=== PATIENT | female | born 1950 | race African-American/Black ===

== ENCOUNTER 2018-04-29 06:15 | Inpatient (IN) | END 2018-05-10 19:35 | DRG 871 ==

== ENCOUNTER 2018-10-06 08:43 | Inpatient (IN) | payer OTHER ==
[~2018-10-06] VITALS: Ht 152.4 cm; Wt 50.0 kg
[~2018-10-06 08:43] MED LIST: ACET-141 PO; ASCO500C7 PO; DOCU100T PO; DONE5TAB7 PO; METO-448 PO; MULTI PO; NOVO3I SC; ONDA4TAB13 PO; PANT40TA3 PO; PROT946L PO; [UNRECOGNIZED DRUG - CODE] PR
[2018-10-06] MEDS ORDERED: SOD CHLORIDE 0.9% 1,000 ML IV STA ×2 (08:55→12:09)
[2018-10-06] MEDS ORDERED: ACET-141 GTB (11:57)
[2018-10-06] MEDS ORDERED: ASC500 GTB (12:02)
[2018-10-06] MEDS ORDERED: INSU100I12 SQ (12:02)
[2018-10-06] MEDS ORDERED: ASPI-903 GTB (12:03)
[2018-10-06] MEDS ORDERED: DOCU-144 GTB (12:03)
[2018-10-06] MEDS ORDERED: DONE5TAB7 GTB (12:04)
[2018-10-06] MEDS ORDERED: LANS30CA GTB (12:05)
[2018-10-06] MEDS ORDERED: LANT3I SC (12:05)
[2018-10-06] MEDS ORDERED: METO-448 GTB (12:08)
[2018-10-06] MEDS ORDERED: INSULIN LISPRO 100 UNIT/ML VIAL SC STA (12:09)
--- NOTE | 2018-10-06 12:09 | ERD ---
ER Documentation Chief Complaint Chief Complaint ALOC AND HYPERGLYCEMIC WITH BG IN THE 300'S HPI This is a 5-year-old female that presents to the emergency department from [facility] brought in by EMS. The patient presented to the emergency department for changes in her mental status. The patient is normally verbal. However this morning roughly an hour prior to arrival nursing staff indicated that the patient appeared more confused. She was nonverbal. EMS arrived and indicated that the patient's blood sugar was 357. Nursing staff indicated that yesterday the patient had ancillary laboratory work taken at 5 PM and her serum sodium was significantly elevated at 155. The patient had no signs of hemoptysis hematemesis or melanotic stools. The patient has underlying history of acute kidney injury due to tubular necrosis. She had multiple previous urinary tract infections. The patient also has a sacral ulcer stage II. The patient was recently discharged from [facility] on 10/23/2018. The patient has a history of type 2 diabetes mellitus. She also has underlying bipolar disease and is poor historian. ROS All systems reviewed and are negative except as per history of present illness. Medications Home Meds Reported Medications Protein Supplement (Promod) 946 Ml Liquid, 30 ML GTB BID 10/06/18 Ondansetron Hcl* (Zofran*) 4 Mg Tab, 4 MG GTB Q4H PRN for NAUSEA AND OR VOMITING, TAB 10/06/18 Multivitamin (Chewable-Franky) 1 Each Tab.chew, 1 EACH GTB DAILY, TAB.CHEW 10/06/18 Metoprolol Tartrate* (Lopressor*) 25 Mg Tab, 25 MG GTB BID, #60 TAB HOLD IF SBP<100 OR HR<70 10/06/18 Lansoprazole* (Lansoprazole*) 30 Mg Capsule.dr, 30 MG GTB DAILY, CAP 10/06/18 Insulin Glargine* (Lantus*) 100 Unit/Ml Soln, 10 UNIT SC QHS, #1 VIAL 10/06/18 Donepezil* (Donepezil*) 5 Mg Tablet, 5 MG GTB DAILY, #30 TAB 10/06/18 Docusate Sodium* (Colace*) 100 Mg Capsule, 100 MG GTB DAILY, #30 CAP 10/06/18 Aspirin* (Aspirin* Chew) 81 Mg Tab.chew, 81 MG GTB DAILY, TAB.CHEW 10/06/18 Ascorbic Acid (Vitamin C) 500 Mg Tab, 500 MG GTB DAILY, TAB 10/06/18 Insulin Lispro (Humalog Kwikpen U-100) 100 Unit/1 Ml Insuln.pen, 0 SQ SLIDING SCALE, EA IF 150-199=2 UNITS,200-249=3 UNITS,250-299=5 UNITS, 300-349=7 UNITS,350-400=10 UNITS, >400=12 UNITS AND CALL <70 GIVE GLUCAGON 1MG AND CALL 10/06/18 Acetaminophen* (Acetaminophen*) 500 MG Extra Strength Tablet, 1000 MG GTB Q4H PRN for PAIN -05/08, TAB 10/06/18 Discontinued Reported Medications Insulin Aspart* (Novolog Insulin Pen*) 100 Unit/Ml Soln, 0 SC AC MEALS AND BEDTIME, EA 70-149 = 0 UNITS 150-199 = 2 UNITS 200-249 = 3 UNITS 250-299 = 5 UNITS 300-349 = 7 UNITS 350-400 =10 UNITS > 400 = 12 UNITS CALL 04/29/18 Protein Supplement (Promod) 946 Ml Liquid, 30 ML PO BID 04/29/18 Ascorbic Acid* (Vitamin C*) 500 Mg Capsule.sa, 500 MG PO DAILY, CAP 04/29/18 Pantoprazole* (Protonix*) 40 Mg Tablet.dr, 40 MG PO DAILY, TAB 04/29/18 Ondansetron Hcl* (Zofran*) 4 Mg Tab, 4 MG PO Q4H PRN for NAUSEA AND OR VOMITING, TAB 04/29/18 Multivitamins* (Theragran*) 1 Tab Tab, 1 TAB PO DAILY, TAB 04/29/18 Donepezil* (Donepezil*) 5 Mg Tablet, 5 MG PO DAILY, #30 TAB 04/29/18 Docusate Sodium* (Dok*) 100 Mg Tablet, 100 MG PO DAILY PRN for CONSTIPATION, #30 CAP 04/29/18 Acetaminophen* (Acetaminophen*) 500 MG Extra Strength Tablet, 500 MG PO Q4H PRN for MILD PAIN LEVEL 1-3, TAB 04/29/18 Discontinued Scripts Aspirin (Aspirin) 300 Mg Supp.rect, 81 MG TX DAILY for 30 Days, SUPP.RECT Prov:CONSUELO RUBY 05/09/18 Metoprolol Tartrate* (Lopressor*) 25 Mg Tab, 25 MG PO BID for 30 Days, TAB Prov:CONSUELO RUBY 05/09/18 Allergies Allergies: Coded Allergies: No Known Allergy (Unverified , 10/06/18) PMhx/Soc Hx Neurological Disorder: Yes (CVA) Hx Respiratory Disorders: Yes Hx Cardiac Disorders: Yes Hx Psychiatric Problems: Yes Hx Miscellaneous Medical Probl: Yes (CHRONIC DYSPHAGIA, CHRONIC CACHEXIA , ENCEPPALOPATHY) Smoking Status: Never smoker Physical Exam Vitals Vital Signs Date Temp Pulse Resp B/P (MAP) Pulse Ox O2 O2 Flow FiO2 Time Delivery Rate 10/06/18 99 18 120/89 99 Room Air 13:20 (99) 10/06/18 112 21 136/96 96 Room Air 11:17 (109) 10/06/18 118 14 123/93 97 Room Air 09:15 (103) 10/06/18 98.2 120 18 138/84 96 08:45 (102) Physical Exam Constitutional:Well-developed. Well-nourished. Cachectic. HEENT:Normocephalic. Atraumatic.Pupils were equal round reactive to light. Very dry mucous membranes.No tonsillar exudates. Very poor oral dentition Neck: No nuchal rigidity. No lymphadenopathy. No posterior cervical spine tenderness or step-offs. Respiratory: Not using accessory muscles of respiration.Lungs were clear to auscultation bilaterally. No rhonchi. No rales. No wheezing. Cardiovascular: Regular rate regular rhythm.No murmurs. No rubs were appreciated.S1, S2 normal. Distal pulses are palpable 2+ bilaterally. GI: Abdomen was soft. Nontender. Non Distended. No pulsatile abdominal masses or bruits. No rebound. No guarding. Bowel sounds were present and normal. PEG tube in place and surrounding skin is clean dry and intact Muscle skeletal: Patient is full range of motion of the upper extremity bilaterally. Muscle atrophy of the bilateral lower extremities. Patient does not follow verbal commands so muscular testing was unable to be obtained however the patient passively had full range of motion of the lower extremities Skin: No petechia, no purpura. No lesions on the palms or the soles of the feet. No maculopapular rash. NEURO: Gait not observed. Patient was mumbling incompressible sounds. Gait not observed Result Diagram: 10/06/18 1220 10/06/18 1222 Results 24 hrs Laboratory Tests Test 10/06/18 10:07 10/06/18 10:10 10/06/18 10:37 10/06/18 12:20 White Blood 4.1 10^3/ul 13.4 10^3/ul Count Red Blood Count 1.70 10^6/ul 5.79 10^6/ul Hemoglobin 5.3 g/dl 17.5 g/dl Hematocrit 18.4 % 55.9 % Mean Corpuscular 108.2 fl 96.5 fl Volume Mean Corpuscular 30.6 pg 30.2 pg Hemoglobin Mean Corpuscular 28.3 g/dl 31.3 g/dl Hemoglobin Shawna nt Red Cell 14.6 % 14.3 % Distribution Width Platelet Count 95 10^3/UL 359 10^3/UL Mean Platelet 12.0 fl 12.4 fl Volume Immature 0.700 % 0.500 % Granulocytes % Neutrophils % % 79.9 % Segmented 90 % Neutrophils % (Manual) Band Neutrophils 1 % % (Manual) Lymphocytes % % 12.5 % Lymphocytes % 4 % (Manual) Monocytes % % 6.6 % Monocytes % 3 % (Manual) Eosinophils % % 0.1 % Basophils % % 0.4 % Basophils % 2 % (Manual) Nucleated Red 0.0 /100WBC 0.0 /100WBC Blood Cells % Immature 0.030 10^3/ul 0.070 10^3/ul Granulocytes # Neutrophils # 10^3/ul 10.7 10^3/ul Neutrophils # 3.7 10^3/ul (Manual) Band Neutrophils 0.0 10^3/ul # Lymphocytes 0.1 10^3/ul (Manual) Lymphocytes # 10^3/ul 1.7 10^3/ul Monocytes # 10^3/ul 0.9 10^3/ul Monocytes # 0.1 10^3/ul (Manual) Eosinophils # 10^3/ul 0.0 10^3/ul Basophils # 10^3/ul 0.1 10^3/ul Basophils # 0.0 10^3/ul (Manual) Nucleated Red 10^3/ul 0.0 10^3/ul Blood Cells # Platelet DECREASED Estimate Giant Platelets 3 % Poikilocytosis 3+ Anisocytosis 1+ Macrocytosis 2+ Prothrombin Time 13.3 Sec Prothrombin Time 1.0 Ratio INR 1.00 International Normalized Ratio Activated 27.5 Sec Partial Thrombop last Time Sodium Level 161 mmol/L Potassium Level 4.6 mmol/L Chloride Level 123 mmol/L Carbon Dioxide 31 mmol/L Level Anion Gap 7 Blood Urea 98 mg/dl Nitrogen Creatinine 1.50 mg/dl Est Glomerular 42 mL/min Filtrat Rate mL/min Glucose Level 418 mg/dl Calcium Level 10.2 mg/dl Total Bilirubin 0.5 mg/dl Direct Bilirubin 0.00 mg/dl Indirect 0.5 mg/dl Bilirubin Aspartate Amino 42 IU/L Transf (AST/SGOT ) Alanine 34 IU/L Aminotransferase (ALT/SGPT) Alkaline 113 IU/L Phosphatase Ammonia < 9 umol/l Creatine Kinase 85 IU/L Creatine Kinase 1.0 Index Creatinine 0.89 ng/ml Kinase MB (Mass) Troponin I 0.044 ng/ml Total Protein 8.2 g/dl Albumin 3.9 g/dl Globulin 4.30 g/dl Albumin/Globulin 0.90 Ratio Salicylates < 1.0 mg/dl Level Acetaminophen < 10.0 ug/ml Level Ethyl Alcohol < 10.0 mg/dl Level POC Venous 1.7 mmol/L Lactate Urine Color YELLOW Urine Clarity CLOUDY Urine pH 5.0 Urine Specific 1.020 [place] Urine Ketones NEGATIVE mg/dL Urine Nitrite NEGATIVE mg/dL Urine Bilirubin NEGATIVE mg/dL Urine NEGATIVE mg/dL Urobilinogen Urine Leukocyte 3+ Nadege/ul Esterase Urine 4 /HPF Microscopic RBC Urine > 182 /HPF Microscopic WBC Urine Bacteria FEW /HPF Urine Mucus FEW /HPF Urine Yeast FEW /HPF (Budding) Urine Hemoglobin NEGATIVE mg/dL Urine Glucose 3+ mg/dL Urine Total 1+ mg/dl Protein Urine Opiates Negative Screen Urine Negative Barbiturates Urine Negative Amphetamines Screen Urine Negative Benzodiazepines Screen Urine Cocaine Negative Screen Urine Negative Cannabinoids Test 10/06/18 12:22 10/06/18 12:56 Sodium Level 162 mmol/L Potassium Level 4.4 mmol/L Chloride Level 120 mmol/L Carbon Dioxide 36 mmol/L Level Anion Gap 6 Blood Urea 100 mg/dl Nitrogen Creatinine 1.53 mg/dl Est Glomerular 41 mL/min Filtrat Rate mL/min Glucose Level 409 mg/dl Lactic Acid 3.1 mmol/L Level Calcium Level 10.3 mg/dl Total Bilirubin 0.6 mg/dl Direct Bilirubin 0.00 mg/dl Indirect 0.6 mg/dl Bilirubin Aspartate Amino 46 IU/L Transf (AST/SGOT ) Alanine 42 IU/L Aminotransferase (ALT/SGPT) Alkaline 110 IU/L Phosphatase Total Protein 8.3 g/dl Albumin 4.1 g/dl Globulin 4.20 g/dl Albumin/Globulin 0.97 Ratio Bedside Glucose 450 mg/dL Current Medications Medications Dose Sig/Louie Start Time Status Last (Trade) Ordered Route PRN Stop Time Admin Dose Reason Admin Sodium 1,000 ml @ Q1H STAT 10/06/18 DC 10/06/18 Chloride 1,000 mls/hr IV 08:55 09:36 10/06/18 09:54 Sodium 1,000 ml @ Q1H STAT 10/06/18 DC 10/06/18 Chloride 1,000 mls/hr IV 12:09 12:47 10/06/18 13:08 Insulin 10 unit ONCE STAT 10/06/18 DC 10/06/18 Human SC 12:09 12:58 Lispro 10/06/18 12:13 (Humalog) Ceftriaxone 50 ml @ ONCE ONCE 10/06/18 DC 10/06/18 Sodium 100 mls/hr IVPB 12:30 12:47 10/06/18 12:59 Ondansetron 4 mg ER BRIDGE 10/06/18 HCl (Zofran PRN IV 12:30 Inj) NAUSEA/VOMITI 10/07/18 12:29 NG 650 mg ER BRIDGE 10/06/18 Acetaminophen PRN PO 12:30 (Tylenol .MILD PAIN 10/07/18 12:29 Tab) 1-3 OR TEMP Procedures/MDM The patient presented to the emergency department with an acute and persistent change in their mental status. The differential diagnosis is diverse however reversible causes such as hypoglycemia, opiate overdose, thiamine deficiency were immediately considered. The patient was placed on a alarm security or surveillance monitor, continuous pulse oximetry and IV access was established. The patients airway was secure however hypoxic events such as anemia, shock, or severe pulmonary disease were all considered as etiologies in this patients presentation. Circulation assessed with good cap refill and did [not] require fluids or pressure support. Finger stick for rapid glucose determined to be normal. 12 Lead EKG tracing ordered and reviewed by myself showed: Sinus tachycardia 116 bpm and no arrhythmia. TX interval normal. QRS duration normal. No ST segment elevation No ST segment depression. No changes consistent with acute ischemia. The patient had severe hypernatremia. She was given a liter bolus of normal saline. The patient was also hyperglycemic but there is no evidence of ketosis. She was given subcutaneous insulin to treat her hyperglycemia. The patient was severely anemic. There is no signs of an upper or lower gastrointestinal bleed is fecal occult blood test was negative. Therefore repeat blood work was obtained and the patient was not anemic. Hemoglobin was 17.5. Therefore a blood transfusion was not performed I did obtain a CT scan the patient had given that she had changes in her mental status. This was reviewed by the radiologist indicate the following: Chronic encephalomalacia left temporal lobe unchanged. Encephalomalacia inferior left frontal lobe likely related to chronic trauma. Old left basal ganglia and subependymal parietal white matter infarct unchanged. Chronic infarct burgos and subcortical white matter right parietal lobe. I obtained a 1 view chest radiograph there is no signs of infiltrates or pneumothorax. The patient had a urinary tract infection was given IV ceftriaxone. The patient had acute on chronic renal failure. This could be exacerbated by the patient's severe dehydration and prerenal and therefore will continue to receive IV fluid resuscitation. She will be admitted to her primary care physician Dr. Godoy. She will go to the telemetry service in serious condition. Critical Care: Time: 65 minutes Treatments/Evaluations: Close monitoring and treatment of unstable vital signs, cardiorespiratory, and neurologic status, while maintaining tight balance of fluid, respiratory, and cardiac interventions. Time does not include performing any of the above billable procedures. Departure Diagnosis: Primary Impression: Encephalopathy Additional Impressions: Renal failure (ARF), acute on chronic Acute renal failure type: unspecified Chronic kidney disease stage: unspecified stage Qualified Codes: N17.9 - Acute kidney failure, unspecified; N18.9 - Chronic kidney disease, unspecified Hyperglycemia without ketosis Urinary tract infection Urinary tract infection type: acute cystitis Hematuria presence: without hematuria Qualified Codes: N30.00 - Acute cystitis without hematuria Acute hypernatremia Condition: Serious HUONG DANG MD Oct 06, 2018 12:09
[2018-10-06] MEDS ORDERED: ONDA4TAB13 GTB (12:12)
[2018-10-06] MEDS ORDERED: MULT1TAB52 GTB (12:12)
[2018-10-06] MEDS ORDERED: PROT946L GTB (12:13)
[2018-10-06] MEDS ORDERED: CEFTRIAXONE 1 GM/50 ML (PMX) 50 ML IVPB ONE (12:30)
[2018-10-06] MEDS ORDERED: ONDANSETRON 4 MG INJ IV PRN ×2 (12:30→17:00)
[2018-10-06] MEDS ORDERED: ACETAMINOPHEN 325 MG TAB PO PRN ×2 (12:30→17:00)
[2018-10-06 16:33] VITALS: PULSE 103
--- NOTE | 2018-10-06 16:55 | QN ---
Documentation Comment [id number] EFE SALCIDO MD Oct 06, 2018 16:55
[2018-10-06] MEDS ORDERED: ACETAMINOPHEN 500 MG TAB PO PRN (17:00)
[2018-10-06] MEDS ORDERED: MAGNESIUM HYDROXIDE 30ML CUP PO PRN (17:00)
[2018-10-06] MEDS ORDERED: NA PHOSPHATE/BIPHOS 133 ML ENEMA PR PRN (17:00)
[2018-10-06] MEDS ORDERED: BISACODYL (EC) 5 MG TAB PO PRN (17:00)
[2018-10-06] MEDS ORDERED: ACETAMINOPHEN 650 MG SUPP PR PRN (17:00)
[2018-10-06] MEDS ORDERED: ONDANSETRON 4 MG TAB GTB PRN (17:00)
[2018-10-06] MEDS ORDERED: NACL 0.9% 3 ML SYG IV SCH (17:00)
[2018-10-06] MEDS ORDERED: DOCUSATE SODIUM 100 MG CAP PO PRN (17:00)
[2018-10-06 17:31] VITALS: BP 129/93; PULSE 104; RESP 18
[2018-10-06 17:40] VITALS: Ht 152.4 cm; Wt 50.0 kg
[2018-10-06] MEDS ORDERED: INSULIN ASPART [NOVOLOG] 3 ML PEN SC SCH (17:55)
--- NOTE | 2018-10-06 17:59 | HP ---
DATE OF ADMISSION: 10/06/2018 HISTORY OF PRESENT ILLNESS: The patient is a 68-year-old female with history of diabetes mellitus, G -tube placement, hypertension, CKD, previously was discharged from this hospital with a diagnosis of UTI, dementia, failure to thrive, history of CVA, MRSA. The patient now presents from [facility] w ith dehydration. The patient also has history of severe sepsis, ESBL UTI, chronic encephalopathy. T he patient has dysphagia, history of CVA, diabetes mellitus, anemia. The patient herself is unable t o give any detailed history. PAST MEDICAL HISTORY: As mentioned above. ALLERGY HISTORY: NEGATIVE. FAMILY HISTORY: Cannot be obtained. SOCIAL HISTORY: Cannot be obtained. MEDICATION HISTORY: Listed as: 1. Tylenol. 2. Ascorbic acid. 3. Aspirin. 4. Docusate sodium. 5. Aricept. 6. Insulin glargine 10 units. 7. Prevacid. 8. Metoprolol. 9. Multiple vitamins. 10. Zofran. 11. Protein supplement. REVIEW OF SYSTEMS: HEENT: Unremarkable. RESPIRATORY: Unremarkable. CARDIOVASCULAR: Unremarkable. ABDOMEN: The patient is having some nausea. EXTREMITIES: No swelling. PHYSICAL EXAMINATION: GENERAL: Pale-looking female, awake, alert. VITAL SIGNS: Pulse 105, blood pressure 147/125. HEENT: Head: Atraumatic, normocephalic. Pupils are equal, reactive to light. Pale conjunctivae. No icterus. Mouth thrush noted. LUNGS: Clear. CARDIOVASCULAR: S1, S2 normal. ABDOMEN: Soft. Bowel sounds are positive. G-tube in place. Surgical scar noted in abdominal area. EXTREMITIES: No cyanosis, clubbing, edema. CENTRAL NERVOUS SYSTEMS: The patient is awake, alert with contracture of the upper extremity noted. LABORATORY DATA: WBC 13.4, hematocrit 55.9, platelet count of 359. Sodium 162, potassium 4.4, chlor juan 120, BUN 100, creatinine 1.53, glucose 409. Lactic acid 3.1. Calcium 10.3. DIAGNOSTIC DATA: The patient had a brain CT scan which shows no intracranial hemorrhage, atrophy, ch ronic encephalomalacia. Chest x-ray is limited study. IMPRESSION: 1. Systemic inflammatory response syndrome. 2. The patient has urosepsis. 3. Acute kidney injury. 4. Prerenal hypernatremia. 5. The patient has free water deficit. 6. Uncontrolled diabetes mellitus. 7. Lactic acidosis. 8. Leukocytosis. 9. Severe dehydration. 10. History of dementia. PLAN: Continue IV hydration, antibiotics and G-tube care. Continue home medication. DVT prophylaxi s. Orders were written. Dictated By: EFE SALCIDO MD BS/NTS Conf#: [id number] DID#: [id number]
[2018-10-06] MEDS: SOD CHLORIDE 0.45% 1,000 ML IV SCH (18:40)
[2018-10-06] MEDS ORDERED: DEXTROSE 50% 50 ML SYRINGE IV PRN ×2 (19:30)
[2018-10-06] MEDS ORDERED: GLUCOSE GEL 15 GRAM TUBE BUCCAL PRN (19:30)
[2018-10-06] MEDS ORDERED: GLUCOSE GEL 15 GRAM TUBE PO PRN ×2 (19:30)
[2018-10-06] MEDS ORDERED: GLUCAGON 1 MG INJ IM PRN (19:30)
[2018-10-06 20:00] VITALS: BP 121/85; PULSE 96; PULSE 97; RESP 16
[2018-10-06] MEDS ORDERED: INSULIN GLARGINE [LANTus] (100 UNITS/ML) SYG SC SCH (21:00)
[2018-10-06] MEDS: METOPROLOL 25 MG TAB GTB SCH (21:41)
[2018-10-06] MEDS: INSULIN ASPART [NOVOLOG] 3 ML PEN SC SCH (22:19)
[2018-10-07] VITALS (11 sets, daily range): BP systolic 112–145; BP diastolic 59–85; PULSE 60–91; RESP 16–22
[2018-10-07] MEDS: INSULIN ASPART [NOVOLOG] 3 ML PEN SC SCH ×7 (01:00→21:58)
[2018-10-07] MEDS: ACCU-CHEK XX SCH (02:00)
[2018-10-07] MEDS: SOD CHLORIDE 0.45% 1,000 ML IV SCH ×2 (05:59→18:40)
[2018-10-07] MEDS ORDERED: INSULIN DETEMIR [LEVEMIR] (100 UNITS/ML) SYG SC SCH (08:00)
[2018-10-07] MEDS ORDERED: INSULIN GLARGINE [LANTus] (100 UNITS/ML) SYG SC SCH (08:00)
[2018-10-07] MEDS: ASPIRIN 81 MG TAB GTB SCH (08:42)
[2018-10-07] MEDS: DONEPEZIL 5 MG TAB GTB SCH (08:42)
[2018-10-07] MEDS: METOPROLOL 25 MG TAB GTB SCH ×2 (08:43→21:52)
[2018-10-07] MEDS ORDERED: DOCUSATE SODIUM 100 MG CAP PO SCH (09:00)
[2018-10-07] MEDS: LANSOPRAZOLE 30 MG CAP GTB SCH (09:00)
[2018-10-07] MEDS ORDERED: DOCUSATE SODIUM 10 MG/ML (10ML CUP) GTB PRN (09:30)
[2018-10-07] MEDS: CEFTRIAXONE 1 GM/50 ML (PMX) 50 ML IVPB SCH (09:45)
[2018-10-07] MEDS: DOCUSATE SODIUM 10 MG/ML (10ML CUP) GTB SCH (09:45)
--- NOTE | 2018-10-07 11:24 | PN ---
Date/Time of Note Date/Time of Note DATE: 10/07/18 TIME: : Assessment/Plan VTE Prophylaxis Risk score (from [facility])>0 risk: 2 SCD applied (from [facility]): Yes Pharmacological prophylaxis: NA/contraindicated Pharm contraindication: low risk/ambulating Lines/Catheters IV Catheter Type (from [facility]): Mid Line Urinary Cath still in place: Yes Reason Cath still needed: urinary retention Assessment/Plan Assessment/Plan 68 y/o with 1 Systemic inflammatory response syndrome. likely due to UTI 2. The patient has urosepsis. Pending urine cultures 3. Acute kidney injury. With the worsening uremia 4. Prerenal hypernatremia. Likely secondary to dehydration 5. The patient has free water deficit. 6. Uncontrolled diabetes mellitus. Leading to dehydration 7. Lactic acidosis. 8. Leukocytosis. 9. Severe dehydration. 10. History of dementia. 11 bedbound 12 Stage II decub plan -cw with half NS at 80 cc an hour repeat labs are pending nurse will try to get the labs as it was a challenging to draw from the patient -Blood glucose control start Lantus 15 units twice daily sliding scale mealtime insulin -nurse informatics educator -IV Rocephin -Hemoglobin improved to 17? We will recheck labs - cw MTP - GI prophylaxsis spokeTo [facility] there is no family available, patient is usually her own spokesperson Result Diagram: 10/06/18 1220 10/06/18 1222 Results 24hrs Laboratory Tests Test 10/06/18 12:20 10/06/18 12:22 10/06/18 12:56 10/06/18 16:01 White Blood Count 13.4 #H Red Blood Count 5.79 #H Hemoglobin 17.5 #H Hematocrit 55.9 #H Mean Corpuscular 96.5 Volume Mean Corpuscular 30.2 Hemoglobin Mean Corpuscular 31.3 L Hemoglobin Concent Red Cell 14.3 Distribution Width Platelet Count 359 # Mean Platelet Volume 12.4 H Immature 0.500 H Granulocytes % Neutrophils % 79.9 H Lymphocytes % 12.5 L Monocytes % 6.6 Eosinophils % 0.1 Basophils % 0.4 Nucleated Red Blood 0.0 Cells % Immature 0.070 H Granulocytes # Neutrophils # 10.7 H Lymphocytes # 1.7 Monocytes # 0.9 Eosinophils # 0.0 Basophils # 0.1 Nucleated Red Blood 0.0 Cells # Sodium Level 162 *H Potassium Level 4.4 Chloride Level 120 H Carbon Dioxide Level 36 H Anion Gap 6 Blood Urea Nitrogen 100 H Creatinine 1.53 H Est Glomerular 41 L Filtrat Rate mL/min Glucose Level 409 *H Lactic Acid Level 3.1 *H Calcium Level 10.3 H Total Bilirubin 0.6 Direct Bilirubin 0.00 Indirect Bilirubin 0.6 Aspartate Amino 46 Transf (AST/SGOT) Alanine 42 Aminotransferase (AL T/SGPT) Alkaline Phosphatase 110 Total Protein 8.3 H Albumin 4.1 Globulin 4.20 H Albumin/Globulin 0.97 Ratio Bedside Glucose 450 *H 287 H Test 10/06/18 21:40 10/07/18 05:49 10/07/18 08:25 10/07/18 09:44 Bedside Glucose 251 H 330 H 367 H 385 H Subjective 24 Hr Interval Summary Free Text/Dictation Open her eyes Weakness on the right arm Mucosa very dry Exam/Review of Systems Exam Vitals Vital Signs Date Temp Pulse Resp B/P (MAP) Pulse Ox O2 O2 Flow FiO2 Time Delivery Rate 10/07/18 97.8 88 20 112/67 96 11:08 (82) 10/07/18 Room Air 07:22 Intake and Output 10/06/18 10/06/18 10/07/18 1515:00 23:00 07:00 IntakeIntake Total 1360 ml OutputOutput Total 550 ml BalanceBalance 810 ml Exam HEENT: Head: Atraumatic, normocephalic. Pupils are equal, reactive to light. Pale conjunctivae. No icterus. Mouth thrush noted. Secretions LUNGS: Clear. CARDIOVASCULAR: S1, S2 normal. ABDOMEN: Soft. Bowel sounds are positive. G-tube in place. Surgical scar noted in abdominal area. EXTREMITIES: No cyanosis, clubbing, edema. CENTRAL NERVOUS SYSTEMS: The patient is awake, alert with contracture of the rt upper extremity noted. Stage II decub Results Results 24hrs Laboratory Tests Test 10/06/18 12:20 10/06/18 12:22 10/06/18 12:56 10/06/18 16:01 White Blood Count 13.4 #H Red Blood Count 5.79 #H Hemoglobin 17.5 #H Hematocrit 55.9 #H Mean Corpuscular 96.5 Volume Mean Corpuscular 30.2 Hemoglobin Mean Corpuscular 31.3 L Hemoglobin Concent Red Cell 14.3 Distribution Width Platelet Count 359 # Mean Platelet Volume 12.4 H Immature 0.500 H Granulocytes % Neutrophils % 79.9 H Lymphocytes % 12.5 L Monocytes % 6.6 Eosinophils % 0.1 Basophils % 0.4 Nucleated Red Blood 0.0 Cells % Immature 0.070 H Granulocytes # Neutrophils # 10.7 H Lymphocytes # 1.7 Monocytes # 0.9 Eosinophils # 0.0 Basophils # 0.1 Nucleated Red Blood 0.0 Cells # Sodium Level 162 *H Potassium Level 4.4 Chloride Level 120 H Carbon Dioxide Level 36 H Anion Gap 6 Blood Urea Nitrogen 100 H Creatinine 1.53 H Est Glomerular 41 L Filtrat Rate mL/min Glucose Level 409 *H Lactic Acid Level 3.1 *H Calcium Level 10.3 H Total Bilirubin 0.6 Direct Bilirubin 0.00 Indirect Bilirubin 0.6 Aspartate Amino 46 Transf (AST/SGOT) Alanine 42 Aminotransferase (AL T/SGPT) Alkaline Phosphatase 110 Total Protein 8.3 H Albumin 4.1 Globulin 4.20 H Albumin/Globulin 0.97 Ratio Bedside Glucose 450 *H 287 H Test 10/06/18 21:40 10/07/18 05:49 10/07/18 08:25 10/07/18 09:44 Bedside Glucose 251 H 330 H 367 H 385 H Medications Medication Current Medications Ondansetron HCl (Zofran Inj) 4 mg ER BRIDGE PRN IV NAUSEA/VOMITING; Start 10/06/18 at 12:30; Stop 10/07/18 at 12:29 Acetaminophen (Tylenol Tab) 1,000 mg Q4H PRN PO PAIN -05/08; Start 10/06/18 at 17:00 Aspirin (Aspirin) 81 mg DAILY GTB Last administered on 10/07/18at 08:42; Admin Dose 81 MG; Start 10/07/18 at 09:00 Donepezil HCl (Aricept) 5 mg DAILY GTB Last administered on 10/07/18at 08:42; Admin Dose 5 MG; Start 10/07/18 at 09:00 Lansoprazole (Prevacid) 30 mg DAILY GTB ; Start 10/07/18 at 09:00 Metoprolol Tartrate (Lopressor) 25 mg BID GTB Last administered on 10/07/18at 08:43; Admin Dose 25 MG; Start 10/06/18 at 21:00 Ondansetron HCl (Zofran Tab) 4 mg Q4H PRN GTB NAUSEA AND/OR VOMITING; Start 10/06/18 at 17:00 Sodium Chloride 1,000 ml @ 80 mls/hr [id number] IV Last administered on 10/07/18at 05:59; Admin Dose 80 MLS/HR; Start 10/06/18 at 16:57 IV Flush (NS 3 ml) 3 ml PER PROTOCOL IV ; Start 10/06/18 at 17:00 Ondansetron HCl (Zofran Inj) 4 mg Q6H PRN IV NAUSEA/VOMITING; Start 10/06/18 at 17:00 Acetaminophen (Tylenol Tab) 650 mg Q6H PRN PO .PAIN 1-3 OR TEMP; Start 10/06/18 at 17:00 Acetaminophen (Tylenol Supp) 650 mg Q6H PRN [place] .PAIN 1-3 OR TEMP; Start 10/06/18 at 17:00 Magnesium Hydroxide (Milk Of Mag) 30 ml DAILY PRN PO .CONSTIPATION; Start 10/06/18 at 17:00 Bisacodyl (Dulcolax) 5 mg DAILY PRN PO .CONSTIPATION; Start 10/06/18 at 17:00 Sodium Biphosphate/ Sodium Phosphate (Fleet Enema) 133 ml DAILY PRN [place] .CONSTIPATION; Start 10/06/18 at 17:00 Diagnostic Test (Pha) (Accu-Chek) 1 ea 02 XX ; Start 10/07/18 at 02:00 Ceftriaxone Sodium 50 ml @ 100 mls/hr Q24H IVPB Last administered on 10/07/18at 09:45; Admin Dose 100 MLS/HR; Start 10/07/18 at 10:00 Insulin Aspart (Novolog Insulin Pen) NOVOLOG *MODERATE* ALGORITHM Q4 SC Last administered on 10/07/18at 08:49; Admin Dose 12 UNIT; Start 10/06/18 at 21:00 Miscellaneous Information 1 ea NOTE XX ; Start 10/06/18 at 19:30 Glucose (Glutose) 15 gm Q15M PRN PO DECREASED GLUCOSE; Start 10/06/18 at 19:30 Glucose (Glutose) 22.5 gm Q15M PRN PO DECREASED GLUCOSE; Start 10/06/18 at 19:30 Dextrose (D50w Syringe) 25 ml Q15M PRN IV DECREASED GLUCOSE; Start 10/06/18 at 19:30 Dextrose (D50w Syringe) 50 ml Q15M PRN IV DECREASED GLUCOSE; Start 10/06/18 at 19:30 Glucagon (Glucagen) 1 mg Q15M PRN IM DECREASED GLUCOSE; Start 10/06/18 at 19:30 Glucose (Glutose) 15 gm Q15M PRN BUCCAL DECREASED GLUCOSE; Start 10/06/18 at 19:30 Insulin Detemir (Levemir) 10 units BID@0800,2000 SC Last administered on 10/07/18at 09:48; Admin Dose 10 UNITS; Start 10/07/18 at 08:00 Docusate Sodium (Colace Liquid Cup) 100 mg DAILY GTB Last administered on 10/07/18at 09:45; Admin Dose 100 MG; Start 10/08/18 at 09:00 Docusate Sodium (Colace Liquid Cup) 100 mg Q12H PRN GTB CONSTIPATION; Start 10/07/18 at 09:30 YUE VAUGHN MD Oct 07, 2018 11:24
[2018-10-07] MEDS ORDERED: INSULIN ASPART [NOVOLOG] 3 ML PEN SC SCH (11:50)
[2018-10-07] MEDS ORDERED: FOSFOMYCIN 3 GM PACKET GTB ONE (15:30)
[2018-10-07] MEDS: INSULIN DETEMIR [LEVEMIR] (100 UNITS/ML) SYG SC SCH (21:54)
[2018-10-08] VITALS (10 sets, daily range): BP systolic 84–119; BP diastolic 53–61; PULSE 59–71; RESP 18–20
[2018-10-08] MEDS: INSULIN ASPART [NOVOLOG] 3 ML PEN SC SCH ×11 (01:00→21:00)
[2018-10-08] MEDS: ACCU-CHEK XX SCH (01:19)
[2018-10-08] MEDS ORDERED: ACCU-CHEK XX SCH (02:00)
[2018-10-08] MEDS: SOD CHLORIDE 0.45% 1,000 ML IV SCH ×2 (06:04→17:28)
[2018-10-08] MEDS: INSULIN DETEMIR [LEVEMIR] (100 UNITS/ML) SYG SC SCH ×2 (08:00→21:16)
[2018-10-08] MEDS: METOPROLOL 25 MG TAB GTB SCH (09:00)
[2018-10-08] MEDS: DONEPEZIL 5 MG TAB GTB SCH (09:00)
[2018-10-08] MEDS: ASPIRIN 81 MG TAB GTB SCH (09:00)
[2018-10-08] MEDS: DOCUSATE SODIUM 10 MG/ML (10ML CUP) GTB SCH (09:00)
[2018-10-08] MEDS: LANSOPRAZOLE 30 MG CAP GTB SCH (09:00)
[2018-10-08] MEDS: CEFTRIAXONE 1 GM/50 ML (PMX) 50 ML IVPB SCH (09:42)
--- NOTE | 2018-10-08 11:47 | PN ---
Date/Time of Note Date/Time of Note DATE: 10/08/18 TIME: 11:43 Assessment/Plan VTE Prophylaxis Risk [place]from [facility] [place] risk: 5 SCD applied (from [facility] [place]): Yes Pharmacological prophylaxis: NA/contraindicated Pharm contraindication: low risk/ambulating Lines/Catheters [facility]ter Type (from [facility] Mid Line Urinary Cath still in place: Yes Reason Cath still needed: urinary retention Assessment/Plan Hospital Course Assessment/Plan 68 y/o with 1 Systemic inflammatory response syndrome. likely due to UTI 2. The patient has urosepsis. Pending urine cultures 3. Acute kidney injury. With the worsening uremia much improved s/p hydration 4. Prerenal hypernatremia. Likely secondary to dehydration much improved 162>148 5. The patient has free water deficit. 6. Uncontrolled diabetes mellitus. Leading to dehydration 7. Lactic acidosis. 8. Leukocytosis. 9. Severe dehydration. 10. History of dementia. 11 bedbound 12 Stage II decub 13 dysphagia status post G-tube plan -cw with half NS at 80 cc an hour -NS bolus, hold metoprolol -Blood glucose control dec Lantus 10 units twice daily /2 units TID insulin> much improved now -IV Rocephin, sp Fosfomycin for enterococcus -decrease FWF - GI prophylaxsis/dvt Prophylaxsis Result Diagram: 10/08/1863710/08/18637 Results 24hrs Laboratory Tests Test 10/07/18 12:32 10/07/18 17:02 10/07/18 21:51 10/08/18 01:10 Bedside Glucose 255 H 160 114 127 Test 10/08/18 04:40 10/08/18 06:38 Bedside Glucose 94 White Blood Count 9.2 # Red Blood Count 4.35 Hemoglobin 13.1 Hematocrit 42.1 Mean Corpuscular 96.8 Volume Mean Corpuscular 30.1 Hemoglobin Mean Corpuscular 31.1 L Hemoglobin Concent Red Cell 13.9 Distribution Width Platelet Count 203 # Mean Platelet Volume 12.4 H Immature 0.400 Granulocytes % Neutrophils % 66.5 Lymphocytes % 25.8 Monocytes % 3.5 Eosinophils % 3.6 Basophils % 0.2 Nucleated Red Blood 0.0 Cells % Immature 0.040 H Granulocytes # Neutrophils # 6.1 Lymphocytes # 2.4 Monocytes # 0.3 Eosinophils # 0.3 Basophils # 0.0 Nucleated Red Blood 0.0 Cells # Sodium Level 148 H Potassium Level 3.9 Chloride Level 116 H Carbon Dioxide Level 29 Anion Gap 3 L Blood Urea Nitrogen 48 #H Creatinine 0.91 Est Glomerular > 60 Filtrat Rate mL/min Glucose Level 94 # Calcium Level 7.9 L Phosphorus Level 2.6 Magnesium Level 2.6 H Subjective 24 Hr Interval Summary Free Text/Dictation And is much awake alert Refusing all medications currently S BP noted to be 80s Exam/Review of Systems Exam Vitals Vital Signs Date Temp Pulse Resp B/P (MAP) Pulse Ox O2 O2 Flow FiO2 Time Delivery Rate 10/08/18 98.2 68 19 84/61 (69) 96 11:36 10/08/18 Room Air 04:00 Intake and Output 10/07/18 10/07/18 10/08/18 1515:00 23:00 07:00 IntakeIntake Total 50 ml 1730 ml 2260 ml OutputOutput Total 350 ml 400 ml BalanceBalance 50 ml 1380 ml 1860 ml Exam HEENT: Head: Atraumatic, normocephalic. Pupils are equal, reactive to light. Pale conjunctivae. No icterus. Mouth thrush noted. Secretions LUNGS: Clear. CARDIOVASCULAR: S1, S2 normal. ABDOMEN: Soft. Bowel sounds are positive. G-tube in place. Surgical scar noted in abdominal area. EXTREMITIES: No cyanosis, clubbing, edema. CENTRAL NERVOUS SYSTEMS: The patient is awake, alert with contracture of the rt upper extremity noted. Stage II decub Results Results 24hrs Laboratory Tests Test 10/07/18 12:32 10/07/18 17:02 10/07/18 21:51 10/08/18 01:10 Bedside Glucose 255 H 160 114 127 Test 10/08/18 04:40 10/08/18 06:38 Bedside Glucose 94 White Blood Count 9.2 # Red Blood Count 4.35 Hemoglobin 13.1 Hematocrit 42.1 Mean Corpuscular 96.8 Volume Mean Corpuscular 30.1 Hemoglobin Mean Corpuscular 31.1 L Hemoglobin Concent Red Cell 13.9 Distribution Width Platelet Count 203 # Mean Platelet Volume 12.4 H Immature 0.400 Granulocytes % Neutrophils % 66.5 Lymphocytes % 25.8 Monocytes % 3.5 Eosinophils % 3.6 Basophils % 0.2 Nucleated Red Blood 0.0 Cells % Immature 0.040 H Granulocytes # Neutrophils # 6.1 Lymphocytes # 2.4 Monocytes # 0.3 Eosinophils # 0.3 Basophils # 0.0 Nucleated Red Blood 0.0 Cells # Sodium Level 148 H Potassium Level 3.9 Chloride Level 116 H Carbon Dioxide Level 29 Anion Gap 3 L Blood Urea Nitrogen 48 #H Creatinine 0.91 Est Glomerular > 60 Filtrat Rate mL/min Glucose Level 94 # Calcium Level 7.9 L Phosphorus Level 2.6 Magnesium Level 2.6 H Medications Medication Current Medications Acetaminophen (Tylenol Tab) 1,000 mg Q4H PRN PO PAIN -05/08; Start 10/06/18 at 17:00 Aspirin (Aspirin) 81 mg DAILY GTB Last administered on 10/07/18at 08:42; Admin Dose 81 MG; Start 10/07/18 at 09:00 Donepezil HCl (Aricept) 5 mg DAILY GTB Last administered on 10/07/18at 08:42; Admin Dose 5 MG; Start 10/07/18 at 09:00 Lansoprazole (Prevacid) 30 mg DAILY GTB ; Start 10/07/18 at 09:00 Metoprolol Tartrate (Lopressor) 25 mg BID GTB Last administered on 10/07/18at 21:52; Admin Dose 25 MG; Start 10/06/18 at 21:00 Ondansetron HCl (Zofran Tab) 4 mg Q4H PRN GTB NAUSEA AND/OR VOMITING; Start 10/06/18 at 17:00 Sodium Chloride 1,000 ml @ 80 mls/hr [id number] IV Last administered on 10/08/18at 06:04; Admin Dose 80 MLS/HR; Start 10/06/18 at 16:57 IV Flush (NS 3 ml) 3 ml PER PROTOCOL IV ; Start 10/06/18 at 17:00 Ondansetron HCl (Zofran Inj) 4 mg Q6H PRN IV NAUSEA/VOMITING; Start 10/06/18 at 17:00 Acetaminophen (Tylenol Tab) 650 mg Q6H PRN PO .PAIN 1-3 OR TEMP; Start 10/06/18 at 17:00 Acetaminophen (Tylenol Supp) 650 mg Q6H PRN DC .PAIN 1-3 OR TEMP; Start at 17:00 Magnesium Hydroxide (Milk Of Mag) 30 ml DAILY PRN PO .CONSTIPATION; Start 10/06/18 at 17:00 Bisacodyl (Dulcolax) 5 mg DAILY PRN PO .CONSTIPATION; Start 10/06/18 at 17:00 Sodium Biphosphate/ Sodium Phosphate (Fleet Enema) 133 ml DAILY PRN DC .CONSTIPATION; Start 10/06/18 at 17:00 Diagnostic Test (Pha) (Accu-Chek) 1 ea 02 XX ; Start 10/07/18 at 02:00 Ceftriaxone Sodium 50 ml @ 100 mls/hr Q24H IVPB Last administered on 10/08/18at 09:42; Admin Dose 100 MLS/HR; Start 10/07/18 at 10:00 Insulin Aspart (Novolog Insulin Pen) NOVOLOG *MODERATE* ALGORITHM Q4 SC Last administered on 10/07/18at 17:13; Admin Dose 2 UNIT; Start 10/06/18 at 21:00 Miscellaneous Information 1 ea NOTE XX ; Start 10/06/18 at 19:30 Glucose (Glutose) 15 gm Q15M PRN PO DECREASED GLUCOSE; Start 10/06/18 at 19:30 Glucose (Glutose) 22.5 gm Q15M PRN PO DECREASED GLUCOSE; Start 10/06/18 at 19:30 Dextrose (D50w Syringe) 25 ml Q15M PRN IV DECREASED GLUCOSE; Start 10/06/18 at 19:30 Dextrose (D50w Syringe) 50 ml Q15M PRN IV DECREASED GLUCOSE; Start 10/06/18 at 19:30 Glucagon (Glucagen) 1 mg Q15M PRN IM DECREASED GLUCOSE; Start 10/06/18 at 19:30 Glucose (Glutose) 15 gm Q15M PRN BUCCAL DECREASED GLUCOSE; Start 10/06/18 at 19:30 Docusate Sodium (Colace Liquid Cup) 100 mg DAILY GTB Last administered on 06/17at 09:45; Admin Dose 100 MG; Start 10/08/18 at 09:00 Docusate Sodium (Colace Liquid Cup) 100 mg Q12H PRN GTB CONSTIPATION; Start 10/07/18 at 09:30 Insulin Detemir (Levemir) 15 units BID@0800,2000 SC Last administered on 10/07/18at 21:54; Admin Dose 15 UNITS; Start 10/07/18 at 20:00 Sodium Chloride 500 ml @ 500 mls/hr Q1H ONCE IV ; Start 10/08/18 at 12:00; Stop 10/08/18 at 12:59; Status UNV Insulin Aspart (Novolog Insulin Pen) 2 unit TID SC ; Start 10/08/18 at 13:00; Status UNV YUE VAUGHN MD Oct 08, 2018 11:47
[2018-10-08] MEDS ORDERED: SOD CHLORIDE 0.9% 500 ML IV ONE (12:00)
[2018-10-09] VITALS (9 sets, daily range): BP systolic 98–126; BP diastolic 51–59; PULSE 61–80; RESP 16–18
[2018-10-09] MEDS: SOD CHLORIDE 0.45% 1,000 ML IV SCH ×3 (00:22→17:58)
[2018-10-09] MEDS: INSULIN ASPART [NOVOLOG] 3 ML PEN SC SCH ×9 (00:23→20:19)
[2018-10-09] MEDS: ACCU-CHEK XX SCH (01:30)
[2018-10-09] MEDS: DOCUSATE SODIUM 10 MG/ML (10ML CUP) GTB SCH (09:02)
[2018-10-09] MEDS: DONEPEZIL 5 MG TAB GTB SCH (09:02)
[2018-10-09] MEDS: ASPIRIN 81 MG TAB GTB SCH (09:02)
[2018-10-09] MEDS: LANSOPRAZOLE 30 MG CAP GTB SCH (09:02)
[2018-10-09] MEDS: INSULIN DETEMIR [LEVEMIR] (100 UNITS/ML) SYG SC SCH ×2 (09:46→20:23)
--- NOTE | 2018-10-09 10:27 | PDOCDIS ---
Discharge Instructions DIAGNOSIS Discharge Diagnosis HYPERNATREMIA UREMIA CONDITION [id number] Patient Condition: [id number] Fair HOME CARE INSTRUCTIONS: [id number] Special Diet: Euxan8g g tube feeding FOLLOW UP/APPOINTMENTS Follow-up Plan f/u Dr Godoy at [facility] BMP in 3-4 days YUE VAUGHN MD Oct 09, 2018 10:27
[2018-10-09] MEDS: CEFTRIAXONE 1 GM/50 ML (PMX) 50 ML IVPB SCH (11:47)
[2018-10-09] MEDS: FLUCONAZOLE 200 MG TAB NGT SCH (12:59)
[2018-10-09] MEDS: MUPIROCIN 2% 22 GM OINT TOP SCH ×2 (12:59→20:19)
--- NOTE | 2018-10-09 19:20 | DS ---
DATE OF ADMISSION: 10/06/2018 DATE OF DISCHARGE: 10/09/2018 HISTORY OF PRESENT ILLNESS AND HOSPITAL COURSE: A 68-year-old female with history of diabetes, G-tub e placement, hypertension, CKD, previously discharge from hospital with the diagnoses of UTI, dementi a, failure to thrive, history of CVA, presents from [facility] secondary to dehydration. The pa mary had severe sepsis as per UTI, chronic encephalopathy in the past. The patient was unable to gi ve any history. Per intermediate, the patient was found to be altered. On admission, pulse 105, blo od pressure 147/125. The patient was extremely dry on exam. White count was 13.3, platelet count 35 9. Sodium 162, potassium 4.4, chloride 120, BUN 100, creatinine 1.53. Lactic acid 3.1, calcium 10.[address] of the brain shows no intracranial hemorrhage. Chest x-ray was limited. The patient was admit rao to telemetry for hypernatremia, urosepsis. UA was done that had showed 3+ leukocyte esterase, 18 2 WBCs. Hemoglobin was done which was 5.3; however, when it was repeated it was 17.5. The patient w as started on IV fluids. Blood sugars were out of control were over 418. The patient was started on half NS at 80 mL an hour. The patient was also started on free water flushes through the G-tube. O fatou the care period of time. The patient's condition was stabilizing. Sodium came down to 144, BUN came down to 30, creatinine came down to 0.88. Urine culture was positive initially for enterococcus species received fosfomycin, but it was only 50,000 to 60,000, however, then repeat urine culture re ceived shows Grace 60,000 to 70,000. The patient was started on Diflucan and Rocephin. The patien t's condition was improving every day and also was started on Levemir. If her fingersticks improved; and the patient was awake, alert, oriented and stable to be discharged back to the [facility]. FINAL DISCHARGE DIAGNOSES: 1. SIRS likely secondary to urinary tract infection. 2. Urosepsis. Positive for enterococcus, status post treatment with possible Vibramycin, however, g rowth insignificant and also Grace growth insignificant. 3. Acute kidney injury secondary to uremia secondary to dehydration. 4. Hypernatremia, improved. 5. Free water ____. 6. Diabetes leading to dehydration. 7. Lactic acidosis. 8. Leukocytosis, resolved. 9. Dementia. 10. Bedbound. 11. History of stage II decubitus. 12. Dysphagia status post G-tube. 13. History of CVA. DISCHARGE CONDITION: Stable. DISCHARGE MEDICATIONS: 1. Continue with free water flushes 100 mL q.4h. 2. Rocephin to be continued for 7 more days IV q.24. 3. Bactroban b.i.d. for 5 days. 4. Fluconazole 200 through NG tube for 5 more days. 5. Levemir 12 b.i.d. 6. Aspirin 81. 7. Aricept 5 daily. 8. Prevacid 30 mg. 9. Insulin sliding scale. 10. Tylenol p.r.n. pain. 11. Half NS at 80 mL an hour to be continued for 1 or 2 days and BMP to be checked in 3 to 4 days. The patient will be followed by Dr. Salcido in [facility]. Dictated By: YUE VAUGHN RB/JARED Conf#: [id number] DID#: [id number] CC: EFE SALCIDO MD;*End*
[2018-10-10] VITALS (10 sets, daily range): BP systolic 134–176; BP diastolic 58–76; PULSE 64–82; RESP 17–20
[2018-10-10] MEDS: INSULIN ASPART [NOVOLOG] 3 ML PEN SC SCH ×6 (00:27→12:49)
[2018-10-10] MEDS: ACCU-CHEK XX SCH (01:27)
[2018-10-10] MEDS: INSULIN DETEMIR [LEVEMIR] (100 UNITS/ML) SYG SC SCH (08:00)
[2018-10-10] MEDS: DOCUSATE SODIUM 10 MG/ML (10ML CUP) GTB SCH (08:58)
[2018-10-10] MEDS: FLUCONAZOLE 200 MG TAB NGT SCH (08:58)
[2018-10-10] MEDS: DONEPEZIL 5 MG TAB GTB SCH (08:58)
[2018-10-10] MEDS: LANSOPRAZOLE 30 MG CAP GTB SCH (08:58)
[2018-10-10] MEDS: SOD CHLORIDE 0.45% 1,000 ML IV SCH (08:58)
[2018-10-10] MEDS: ASPIRIN 81 MG TAB GTB SCH (08:58)
[2018-10-10] MEDS: CEFTRIAXONE 1 GM/50 ML (PMX) 50 ML IVPB SCH (09:05)
[2018-10-10] MEDS: MUPIROCIN 2% 22 GM OINT TOP SCH (09:05)
--- NOTE | 2018-10-10 10:03 | PN ---
Date/Time of Note Date/Time of Note DATE: 10/10/18 TIME: 10:03 Assessment/Plan VTE Prophylaxis Risk score (from [facility] [place])>0 risk: 5 SCD applied (from [facility] [place]): Yes Pharmacological prophylaxis: NA/contraindicated Pharm contraindication: low risk/ambulating Lines/Catheters IV Catheter Type (from [facility]): Mid Line Urinary Cath still in place: Yes Reason Cath still needed: urinary retention Assessment/Plan Hospital Course Assessment/Plan 68 y/o with 1 Systemic inflammatory response syndrome. likely due to UTI 2. The patient has urosepsis. Pending urine cultures 3. Acute kidney injury. With the worsening uremia much improved s/p hydration 4. Prerenal hypernatremia. Likely secondary to dehydration much improved 162>148 5. The patient has free water deficit. 6. Uncontrolled diabetes mellitus. Leading to dehydration 7. Lactic acidosis. 8. Leukocytosis. 9. Severe dehydration. 10. History of dementia. 11 bedbound 12 Stage II decub 13 dysphagia status post G-tube plan -cw with half NS at 80 cc an hour -Blood glucose control dec Lantus 13 units twice daily /2 units TID insulin> much improved now -IV Rocephin, sp Fosfomycin for enterococcus - FWF - GI prophylaxsis/dvt Prophylaxsis dc TO SNIF Result Diagram: 10/08/18 0638 10/09/18 0629 Results 24hrs Laboratory Tests Test 10/09/18 11:51 10/09/18 12:57 10/09/18 17:55 10/09/18 20:18 Bedside Glucose 76 76 72 85 Test 10/10/18 00:26 10/10/18 00:35 10/10/18 00:49 10/10/18 01:16 Bedside Glucose 61 L 73 158 151 Test 10/10/18 04:33 10/10/18 08:59 Bedside Glucose 114 108 Subjective 24 Hr Interval Summary Free Text/Dictation Doing well waiting to get transferred Exam/Review of Systems Exam Vitals Vital Signs Date Temp Pulse Resp B/P (MAP) Pulse Ox O2 O2 Flow FiO2 Time Delivery Rate 10/10/18 99.0 73 18 149/67 96 Room Air 08:05 (94) Intake and Output 10/09/18 10/09/18 10/10/18 1515:00 23:00 07:00 IntakeIntake Total 50 ml 1100 ml OutputOutput Total 1000 ml 1300 ml BalanceBalance 50 ml -1000 ml -200 ml Exam Exam HEENT: Head: Atraumatic, normocephalic. Pupils are equal, reactive to light. Pale conjunctivae. No icterus. Mouth thrush noted. Secretions LUNGS: Clear. CARDIOVASCULAR: S1, S2 normal. ABDOMEN: Soft. Bowel sounds are positive. G-tube in place. Surgical scar noted in abdominal area. EXTREMITIES: No cyanosis, clubbing, edema. CENTRAL NERVOUS SYSTEMS: The patient is awake, alert with contracture of the rt upper extremity noted. Stage II decub Results Results 24hrs Laboratory Tests Test 10/09/18 11:51 10/09/18 12:57 10/09/18 17:55 10/09/18 20:18 Bedside Glucose 76 76 72 85 Test 10/10/18 00:26 10/10/18 00:35 10/10/18 00:49 10/10/18 01:16 Bedside Glucose 61 L 73 158 151 Test 10/10/18 04:33 10/10/18 08:59 Bedside Glucose 114 108 Medications Medication Current Medications Acetaminophen (Tylenol Tab) 1,000 mg Q4H PRN PO PAIN -05/08; Start 10/06/18 at 17:00 Aspirin (Aspirin) 81 mg DAILY GTB Last administered on 10/10/18 08:58; Admin Dose 81 MG; Start 10/07/18 at 09:00 Donepezil HCl (Aricept) 5 mg DAILY GTB Last administered on 10/10/18 08:58; Admin Dose 5 MG; Start 10/07/18 at 09:00 Lansoprazole (Prevacid) 30 mg DAILY GTB Last administered on 10/10/18 08:58; Admin Dose 30 MG; Start 10/07/18 at 09:00 Ondansetron HCl (Zofran Tab) 4 mg Q4H PRN GTB NAUSEA AND/OR VOMITING; Start 10/06/18 at 17:00 Sodium Chloride 1,000 ml @ 80 mls/hr [id number] IV Last administered on 10/10/18 08:58; Admin Dose 80 MLS/HR; Start 10/06/18 at 16:57 IV Flush (NS 3 ml) 3 ml PER PROTOCOL IV ; Start 10/06/18 at 17:00 Ondansetron HCl (Zofran Inj) 4 mg Q6H PRN IV NAUSEA/VOMITING; Start 10/06/18 at 17:00 Acetaminophen (Tylenol Tab) 650 mg Q6H PRN PO .PAIN 1-3 OR TEMP; Start 10/06/18 at 17:00 Acetaminophen (Tylenol Supp) 650 mg Q6H PRN [place] .PAIN 1-3 OR TEMP; Start 10/06/18 at 17:00 Magnesium Hydroxide (Milk Of Mag) 30 ml DAILY PRN PO .CONSTIPATION; Start 10/06 at 17:00 Bisacodyl (Dulcolax) 5 mg DAILY PRN PO .CONSTIPATION; Start 10/06/18 at 17:00 Sodium Biphosphate/ Sodium Phosphate (Fleet Enema) 133 ml DAILY PRN [place] .CONSTIPATION; Start 10/06/18 at 17:00 Diagnostic Test (Pha) (Accu-Chek) 1 ea 02 XX ; Start 10/07/18 at 02:00 Ceftriaxone Sodium 50 ml @ 100 mls/hr Q24H IVPB Last administered on 10/10/18at 09:05; Admin Dose 100 MLS/HR; Start 10/07/18 at 10:00 Insulin Aspart (Novolog Insulin Pen) NOVOLOG *MODERATE* ALGORITHM Q4 SC Last administered on 10/08/18at 12:53; Admin Dose 6 UNIT; Start 10/06/18 at 21:00 Miscellaneous Information 1 ea NOTE XX ; Start 10/06/18 at 19:30 Glucose (Glutose) 15 gm Q15M PRN PO DECREASED GLUCOSE; Start 10/06/18 at 19:30 Glucose (Glutose) 22.5 gm Q15M PRN PO DECREASED GLUCOSE; Start 10/06/18 at 19:30 Dextrose (D50w Syringe) 25 ml Q15M PRN IV DECREASED GLUCOSE Last administered on 10/10/18at 00:32; Admin Dose 25 ML; Start 10/06/18 at 19:30 Dextrose (D50w Syringe) 50 ml Q15M PRN IV DECREASED GLUCOSE Last administered on 10/08/18at 12:34; Admin Dose 50 ML; Start 10/06/18 at 19:30 Glucagon (Glucagen) 1 mg Q15M PRN IM DECREASED GLUCOSE; Start 10/06/18 at 19:30 Glucose (Glutose) 15 gm Q15M PRN BUCCAL DECREASED GLUCOSE; Start 10/06/18 at 19:30 Docusate Sodium (Colace Liquid Cup) 100 mg DAILY GTB Last administered on 10/10/18at 08:58; Admin Dose 100 MG; Start 10/08/18 at 09:00 Docusate Sodium (Colace Liquid Cup) 100 mg Q12H PRN GTB CONSTIPATION; Start 10/07/18 at 09:30 Insulin Aspart (Novolog Insulin Pen) 2 unit TID SC Last administered on 10/10/18at 09:04; Admin Dose 2 UNIT; Start 10/08/18 at 13:00 Fluconazole (Diflucan) 200 mg DAILY NGT Last administered on 10/10/18at 08:58; Admin Dose 200 MG; Start 10/09/18 at 10:00 Mupirocin (Bactroban) 1 applic BID TOP Last administered on 10/10/18at 09:05; Admin Dose 1 APPLIC; Start 10/09/18 at 10:30 Insulin Detemir (Levemir) 13 units BID@0800,2000 SC ; Start 10/10/18 at 20:00 YUE VAUGHN MD Oct 10, 2018 10:03
[2018-10-10] MEDS ORDERED: INSULIN DETEMIR [LEVEMIR] (100 UNITS/ML) SYG SC SCH (20:00)
== END 2018-10-10 16:52 | DRG 872 ==
LOC: E/R 08:43 → TEL 12:29
PROVIDERS: ADMIT Internal Medicine Nephrology; ATTEND Internal Medicine Nephrology
DX: A41.9 Sepsis, unspecified organism (principal); N39.0 Urinary tract infection, site not specified; N17.9 Acute kidney failure, unspecified; E87.0 Hyperosmolality and hypernatremia; E87.2 Acidosis; L89.152 Pressure ulcer of sacral region, stage 2; E11.65 Type 2 diabetes mellitus with hyperglycemia; R13.12 Dysphagia, oropharyngeal phase; F03.90 Unspecified dementia, unspecified severity, without behavioral disturbance, psychotic disturbance, mood disturbance, and anxiety; E86.0 Dehydration; Z93.1 Gastrostomy status; F31.9 Bipolar disorder, unspecified; Z79.4 Long term (current) use of insulin; Z79.82 Long term (current) use of aspirin; Z86.73 Personal history of transient ischemic attack (TIA), and cerebral infarction without residual deficits; Z74.01 Bed confinement status
CPT/HCPCS: 36415; 70450; 71045; 80048; 80053; 80307; 81001; 82140; 82550; 82553; 82962; 83036; 83605; 83735; 84100; 84484; 85025; 85610; 85730; 86850; 86900; 86901; 86920; 87040; 87081; 87086; 93005; J0696; J1815; J7030; J7040